=== PATIENT | female | born 1975 | race Caucasian/White ===

== ENCOUNTER 2018-12-24 18:02 | Outpatient (REF) | payer OTHER, SELFPAY ==
[2018-12-24 21:57] LABS: HCT 40.1 % (36.0-46.0); HGB 13.4 g/dL (12.0-15.5); Mean Corp. HGB Concentration 33.4 g/dL (32.0-36.0); Mean Corpuscular Hemoglobin 30.7 pg (27.0-33.0); Mean Platelet Volume 10.3 fL (8.0-11.0); Platelet Count 345 x1000/uL (130-400); RBC 4.36 m/cumm (4.00-5.20); White Blood Cell Count 8.24 k/cumm (4.4-10.8)
[2018-12-24 22:10] LABS: ALT 17 U/L (12-78); AST 16 U/L (15-37); Albumin 3.9 g/dL (3.4-5.0); Alkaline Phosphatase 47 U/L (46-116); Anion Gap 8.5 mmol/L (3-11); BUN 9 mg/dL (7-18); Bilirubin, Total 0.5 mg/dL (0.2-1.0); CO2 27.5 mmol/L (21.0-32.0); CREATININE 0.84 mg/dL (0.55-1.02); Calcium 9.2 mg/dL (8.5-10.1); Chloride 103 mmol/L (98-107); Glucose 84 mg/dL (70-100); Potassium 4.1 mmol/L (3.5-5.1); Sodium 139 mmol/L (136-145); Total Protein 7.5 g/dL (6.4-8.2)
[2018-12-24 22:36] LABS: Vitamin D 25 Total 49.1 ng/ml (30-100)
[2018-12-24 22:42] LABS: ESR 20 MM/HR (0-20)
== END 2018-12-24 18:22 ==
LOC: NCHCN 18:02
PROVIDERS: PCP Nurse Practitioner Family; Visit Provider Family Medicine
DX: R53.83 Other fatigue (principal); R50.9 Fever, unspecified
CPT/HCPCS: 80053; 82306; 85027; 85652

== ENCOUNTER 2019-03-15 17:59 | Outpatient (REF) | payer BC, SELFPAY ==
[2019-03-15 20:53] LABS: Abs Immature Grans 0.03 k/cumm (0.0-0.09); HCT 39.5 % (36.0-46.0); HGB 13.1 g/dL (12.0-15.5); Mean Corp. HGB Concentration 33.2 g/dL (32.0-36.0); Mean Corpuscular Hemoglobin 30.6 pg (27.0-33.0); Mean Corpuscular Volume 92.3 fL (80-95); Mean Platelet Volume 10.4 fL (8.0-11.0); Platelet Count 366 x1000/uL (130-400); RBC 4.28 m/cumm (4.00-5.20); RBC Distribution Width 13.1 % (11.7-14.6); White Blood Cell Count 10.53 k/cumm (4.4-10.8)
[2019-03-15 21:13] LABS: ALT 18 U/L (12-78); AST 14 U/L (15-37); Alkaline Phosphatase 54 U/L (46-116); BUN 8 mg/dL (7-18); Bilirubin, Total 0.4 mg/dL (0.2-1.0); CREATININE 0.75 mg/dL (0.55-1.02); Chloride 102 mmol/L (98-107); Glucose 88 mg/dL (70-100); Sodium 138 mmol/L (136-145); TSH (W/Ref FT4) 1.89 uIU/mL (0.358-3.74); Total Protein 7.4 g/dL (6.4-8.2)
[2019-03-15 21:19] LABS: Absolute Neutrophil Count 4.84 k/cumm (1.2-6.7)
[2019-03-15 21:20] LABS: Absolute Basophil Count 0.11 k/cumm (0.0-0.2); Absolute Eosinophil Count 1.16 k/cumm (0.0-0.7); Absolute Monocyte Count 0.42 k/cumm (0.11-0.7); Atypical Lymphocytes % 3; Diff Comment Manual Differential; RBC Morphology Normal
[2019-03-17 10:36] LABS: HBs Antibody, Quant <3.1 mIU/mL; Hepatitis B Surface Ab Negative
[2019-03-17 11:40] LABS: Measles IgG Antibody Positive; Mumps Antibody IgG Positive (Negative); Rubella IgG Ab (UVM) Positive; Varicella IgG Antibody Positive
[2019-04-02 09:54] LABS: Rabies Antibody Endpoint 1.1 IU/mL
== END 2019-03-15 18:19 ==
LOC: NCHCN 17:59
PROVIDERS: PCP Nurse Practitioner Family; Visit Provider Nurse Practitioner Family
DX: Z00.00 Encounter for general adult medical examination without abnormal findings (principal); Z01.84 Encounter for antibody response examination; Z11.59 Encounter for screening for other viral diseases; Z13.29 Encounter for screening for other suspected endocrine disorder; R19.7 Diarrhea, unspecified; R10.32 Left lower quadrant pain
CPT/HCPCS: 80053; 86317; 86706; 86787; 84443; 85025; 86735; 86762; 86765

== ENCOUNTER 2019-03-19 02:16 | Outpatient (CLI) | payer BC, SELFPAY ==
--- NOTE | 2019-03-19 09:32 | DI.CT_ITS ---
SYMPTOMS/DIAGNOSIS: LLQ ABD PAIN, R10.32, DIARRHEA, R19.7 CT OF THE ABDOMEN AND PELVIS: There are no prior comparison exams. Images were performed from the lung bases through the ischial tuberosities after IV and oral contrast. The lung bases are clear. The heart size is normal. The liver, gallbladder, spleen, pancreas, adrenals and kidneys appear normal. The appendix appears normal. There is no bowel dilatation or inflammatory change. No diverticula are seen. There is no free air or free fluid. The uterus, ovaries and bladder are unremarkable. There is no adenopathy. The aorta is normal in diameter. There are degenerative disc changes greatest at L 4 - 5. IMPRESSION: No acute abnormality.
[2019-03-19] MEDS: Omnipaque 350 MG/ML 100 ML BTL IV (09:35)
== END 2019-03-19 02:36 ==
PROVIDERS: PCP Nurse Practitioner Family; Visit Provider Nurse Practitioner Family
DX: R10.32 Left lower quadrant pain (principal); R19.7 Diarrhea, unspecified
CPT/HCPCS: 74177; J3490

== ENCOUNTER 2019-03-29 11:52 | Outpatient (REF) | payer BC, SELFPAY ==
--- NOTE | 2019-03-29 11:19 | SKI_PTH ---
PATIENT: Elis Bernal LOC: [facility] U#:[id number] AGE/SX: 44/F ROOM: RE03/29/[address]: Felipe Garcia DO : 1975 BED: DIS: 03/29/2019 SPEC #: [id number] RECD: 03/29/19 18:03 STATUS: MANJU REMatthew #: [id number] KIARA: 03/29/19 11:[address]: Felipe Garcia DEPT: Surgical Specimen RECD BY: Binta Mooney ENTERED: 03/29/19 18:05 SP TYPE: NA COLLINS DR: Sushila Chung Tissues: 1 - SKIN BIOPSY(SHAVE/PUNCH) Procedures: SKIN LEVEL 4 Comments: [id number]
== END 2019-03-29 12:12 ==
LOC: LBN 11:52
PROVIDERS: PCP Nurse Practitioner Family; Visit Provider Otolaryngology Otolaryngology/Facial Plastic Surgery
DX: L82.1 Other seborrheic keratosis (principal)
CPT/HCPCS: 88305

== ENCOUNTER 2019-04-21 16:58 | Outpatient (REF) | payer BC, SELFPAY ==
[2019-04-21 22:34] LABS: C-Reactive Protein 0.21 mg/dL (0.0-0.3)
[2019-04-21 23:16] LABS: ESR 18 MM/HR (0-20)
[2019-04-21 23:22] LABS: Iron 64 ug/dL (50-175)
[2019-04-21 23:24] LABS: Vitamin B12 767 pg/mL (193-986)
[2019-04-23 13:59] LABS: Lyme Ab w Rflx to Lyme Confirm Negative
[2019-04-23 16:39] LABS: ANA Interpretation Negative (NEGAT)
[2019-04-24 22:23] LABS: Anaplasma phagocytophilum Negative (Negative); B. miyamotoi PCR Negative (Negative); Babesia divergens/MO-1 Negative (Negative); Babesia duncani Negative (Negative); Babesia microti Negative (Negative); Ehrlichia chaffeensis Negative (Negative); Ehrlichia ewingii/canis Negative (Negative); Ehrlichia muris eauclairensis Negative (Negative)
== END 2019-04-21 17:18 ==
LOC: NCHCN 16:58
PROVIDERS: PCP Nurse Practitioner Family; Visit Provider Nurse Practitioner Family
DX: R53.83 Other fatigue (principal); R41.0 Disorientation, unspecified; R50.9 Fever, unspecified; G43.109 Migraine with aura, not intractable, without status migrainosus
CPT/HCPCS: 85652; 82607; 83540; 86038; 86140; 86618; 87798

== ENCOUNTER 2019-06-09 00:27 | Outpatient (CLI) | payer BC, SELFPAY ==
--- NOTE | 2019-06-09 13:49 | DI.MRI_ITS ---
SYMPTOM/DIAGNOSIS: WORSENING HEADACHES, NEW VISUAL DISTURBANCES, H53.9 BRAIN MRI: Sagittal T 2, axial T 2, axial diffusion, axial FLAIR and axial GRE and axial T 1 pulse sequences were performed. No signal abnormality is demonstrated in the brain. There is no evidence of a mass or restricted diffusion. The ventricles are normal. The normal flow void is identified in the cerebral vessels. SUMMARY: Normal brain MRI.
== END 2019-06-09 00:47 ==
PROVIDERS: PCP Nurse Practitioner Family; Visit Provider Nurse Practitioner Adult Health
DX: H53.9 Unspecified visual disturbance (principal); R51 Headache
CPT/HCPCS: 70551

== ENCOUNTER 2019-09-28 14:43 | Outpatient (REF) | payer BC, SELFPAY ==
[2019-09-28 22:12] LABS: Abs Immature Grans 0.01 k/cumm (0.0-0.09); Absolute Basophil Count 0.04 k/cumm (0.0-0.2); Absolute Eosinophil Count 0.53 k/cumm (0.0-0.7); Absolute Lymphocyte Count 2.34 k/cumm (1.2-3.4); Absolute Monocyte Count 0.77 k/cumm (0.11-0.7); Absolute Neutrophil Count 4.79 k/cumm (1.2-6.7); Basophils % 0.5; Eosinophils % 6.3; HCT 41.5 % (36.0-46.0); HGB 13.7 g/dL (12.0-15.5); Immature Grans % 0.1; Lymphocytes % 27.6; Mean Corpuscular Hemoglobin 30.6 pg (27.0-33.0); Mean Corpuscular Volume 92.6 fL (80-95); Mean Platelet Volume 10.3 fL (8.0-11.0); Monocytes % 9.1; Neutrophils % 56.4; Platelet Count 382 x1000/uL (130-400); RBC 4.48 m/cumm (4.00-5.20); White Blood Cell Count 8.48 k/cumm (4.4-10.8)
[2019-09-28 22:54] LABS: ALT 22 U/L (14-59); AST 15 U/L (15-37); Alkaline Phosphatase 46 U/L (46-116); Anion Gap 11.2 mmol/L (3-11); BUN 10 mg/dL (7-18); Bilirubin, Total 0.4 mg/dL (0.2-1.0); CO2 24.8 mmol/L (21.0-32.0); CREATININE 0.86 mg/dL (0.55-1.02); Chloride 104 mmol/L (98-107); Glucose 85 mg/dL (70-100); Potassium 4.2 mmol/L (3.5-5.1); Sodium 140 mmol/L (136-145); TSH 1.11 uIU/mL (0.36-3.74); Total Protein 7.6 g/dL (6.4-8.2)
[2019-09-28 23:33] LABS: FREE T4 0.91 ng/dL (0.76-1.46)
[2019-09-29 22:36] LABS: T3,Free 3.5 pg/ml (2.8-5.3)
[2019-09-30 11:54] LABS: Lyme Ab w Rflx to Lyme Confirm Negative
[2019-09-30 21:47] LABS: Anaplasma phagocytophilum Negative (Negative); B. miyamotoi PCR Negative (Negative); Babesia divergens/MO-1 Negative (Negative); Babesia duncani Negative (Negative); Babesia microti Negative (Negative); Ehrlichia chaffeensis Negative (Negative); Ehrlichia ewingii/canis Negative (Negative); Ehrlichia muris eauclairensis Negative (Negative)
== END 2019-09-28 15:03 ==
LOC: NCHCO 14:43
PROVIDERS: PCP Nurse Practitioner Family; Visit Provider Specialist/Technologist Athletic Trainer
DX: R53.81 Other malaise (principal)
CPT/HCPCS: 80053; 87798; 84439; 84443; 84481; 85025; 86618

== ENCOUNTER 2019-11-05 13:01 | Outpatient (REF) | payer BC, SELFPAY ==
[2019-11-05 20:50] LABS: Abs Immature Grans 0.01 k/cumm (0.0-0.09); Absolute Basophil Count 0.03 k/cumm (0.0-0.2); Absolute Eosinophil Count 0.39 k/cumm (0.0-0.7); Absolute Lymphocyte Count 2.19 k/cumm (1.2-3.4); Absolute Monocyte Count 0.79 k/cumm (0.11-0.7); Absolute Neutrophil Count 4.79 k/cumm (1.2-6.7); Basophils % 0.4; Eosinophils % 4.8; HGB 13.5 g/dL (12.0-15.5); Immature Grans % 0.1; Lymphocytes % 26.7; Mean Corp. HGB Concentration 32.9 g/dL (32.0-36.0); Mean Corpuscular Hemoglobin 30.5 pg (27.0-33.0); Mean Corpuscular Volume 92.6 fL (80-95); Mean Platelet Volume 10.2 fL (8.0-11.0); Monocytes % 9.6; Neutrophils % 58.4; Platelet Count 402 x1000/uL (130-400); RBC 4.43 m/cumm (4.00-5.20)
[2019-11-05 21:11] LABS: Iron 103 ug/dL (50-170); Total Iron Binding Capacity 322 ug/dL (250-450); Transferrin Sat 32 % (15-50)
== END 2019-11-05 13:21 ==
LOC: NCHCN 13:01
PROVIDERS: PCP Nurse Practitioner Family; Visit Provider Nurse Practitioner Family
DX: R53.83 Other fatigue (principal); J01.90 Acute sinusitis, unspecified
CPT/HCPCS: 83540; 83550; 85025

== ENCOUNTER 2020-04-26 08:58 | Outpatient (CLI) | payer BC, SELFPAY ==
[2020-04-28 12:53] LABS: COVID-19 RT-PCR Result NEGATIVE (Negative)
== END 2020-04-26 09:18 ==
PROVIDERS: PCP Nurse Practitioner Family; Visit Provider Nurse Practitioner Family
DX: Z11.59 Encounter for screening for other viral diseases (principal)
CPT/HCPCS: U0003

== ENCOUNTER 2020-08-31 15:00 | Outpatient (REF) | payer BC, SELFPAY ==
[2020-09-04 12:50] LABS: Patient Race White; SARS-CoV-2 RNA Undetected (Undetected); SARS-CoV-2 Specimen Source Nasal
== END 2020-08-31 15:20 ==
LOC: NCHCN 15:00
PROVIDERS: PCP Nurse Practitioner Family; Visit Provider Nurse Practitioner Family
DX: Z20.828 Contact with and (suspected) exposure to other viral communicable diseases (principal)
CPT/HCPCS: U0003

== ENCOUNTER 2021-06-11 03:27 | Outpatient (CLI) | payer BC, SELFPAY ==
[2021-06-11 08:09] LABS: HCT 40.7 % (36.0-46.0); HGB 13.5 g/dL (11.2-15.7); MCH 30.3 pg (27.0-33.0); MCHC 33.2 % (32.0-36.0); MCV 91.3 fL (80-95); MPV 9.6 fL (8.0-11.0); Platelet Count 353 10^3/uL (130-400); RBC 4.46 10^6/uL (3.93-5.22); RDW 12.6 % (11.7-14.6); RDW-SD 41.4 fL; WBC 7.89 10^3/uL (4.4-10.8)
[2021-06-11 09:09] LABS: ALT 19 U/L (14-59); AST 16 U/L (15-37); Alkaline Phosphatase 55 U/L (46-116); Anion Gap 11.8 mmol/L (3-11); BUN 8 mg/dL (7-18); Bilirubin, Total 0.5 mg/dL (0.2-1.0); CO2 25.2 mmol/L (21.0-32.0); CREATININE 0.9 mg/dL (0.55-1.02); Calculated LDL 182 mg/dL (<100); Chloride 105 mmol/L (98-107); Cholesterol 255 mg/dL (<200); Glucose 97 mg/dL (74-106); HDL Cholesterol 54 mg/dL (40-60); Potassium 4.3 mmol/L (3.5-5.1); Sodium 142 mmol/L (136-145); TSH (W/Ref FT4) 1.53 uIU/mL (0.36-3.74); Total Protein 7.6 g/dL (6.4-8.2); Triglyceride 96 mg/dL (<150)
[2021-06-11 09:23] LABS: Vitamin D 25 Total 38.9 ng/mL (30-100)
== END 2021-06-11 03:28 | disposition home or self-care (01) ==
LOC: LBO 03:28
PROVIDERS: PCP Student in an Organized Health Care Education/Training Program; Visit Provider Student in an Organized Health Care Education/Training Program
DX: R53.83 Other fatigue (principal); E55.9 Vitamin D deficiency, unspecified; R63.8 Other symptoms and signs concerning food and fluid intake; E56.9 Vitamin deficiency, unspecified; E46 Unspecified protein-calorie malnutrition; E86.0 Dehydration; Z13.220 Encounter for screening for lipoid disorders; F32.9 Major depressive disorder, single episode, unspecified; M79.672 Pain in left foot
CPT/HCPCS: 36415; 80053; 80061; 82306; 85027; 84443

== ENCOUNTER 2021-09-17 18:48 | Outpatient (REF) | payer BC, SELFPAY ==
[2021-09-17 22:06] LABS: Abs Immature Grans 0.04 10^3/uL (0.0-0.06); Absolute Basophil Count 0.05 10^3/uL (0.0-0.2); Absolute Eosinophil Count 0.34 10^3/uL (0.0-0.7); Absolute Lymphocyte Count 2.16 10^3/uL (1.2-3.4); Absolute Neutrophil Count 5.19 10^3/uL (1.2-6.7); Basophils % 0.6; Eosinophils % 3.9; HCT 42.3 % (36.0-46.0); HGB 13.7 g/dL (11.2-15.7); Immature Grans % 0.5; Lymphocytes % 24.9; MCH 30.2 pg (27.0-33.0); MCHC 32.4 % (32.0-36.0); MCV 93.2 fL (80-95); MPV 10.7 fL (8.0-11.0); Monocytes % 10.4; Neutrophils % 59.7; Nucleated RBC 0 %; Platelet Count 359 10^3/uL (130-400); RBC 4.54 10^6/uL (3.93-5.22); RDW 12.8 % (11.7-14.6); RDW-SD 43.8 fL; WBC 8.68 10^3/uL (4.4-10.8)
[2021-09-17 22:23] LABS: ESR 18 mm/hr (0-20)
[2021-09-17 22:30] LABS: Iron 86 ug/dL (50-170); Total Iron Binding Capacity 331 ug/dL (250-450); Transferrin Sat 26 % (15-50)
[2021-09-17 22:54] LABS: Anion Gap 10.7 mmol/L (3-11); BUN 7 mg/dL (7-18); CO2 26.3 mmol/L (21.0-32.0); CREATININE 0.9 mg/dL (0.55-1.02); Calcium 9.2 mg/dL (8.5-10.1); Calculated LDL 170 mg/dL (<100); Chloride 106 mmol/L (98-107); Cholesterol 245 mg/dL (<200); Ferritin 73 ng/mL (8-252); Glucose 74 mg/dL (74-106); HDL Cholesterol 49 mg/dL (40-60); Magnesium 2.4 mg/dL (1.8-2.4); Potassium 4.1 mmol/L (3.5-5.1); Sodium 143 mmol/L (136-145); TSH 1.61 uIU/mL (0.36-3.74); Triglyceride 132 mg/dL (<150); Vitamin B12 426 pg/mL (193-986)
[2021-09-17 23:11] LABS: C-Reactive Protein 0.15 mg/dL (0.0-0.3); FREE T4 0.86 ng/dL (0.76-1.46)
[2021-09-17 23:17] LABS: Vitamin D 25 Total 51.6 ng/mL (30-100)
[2021-09-18 17:02] LABS: T3,Free 3.2 pg/mL (2.8-5.3)
[2021-09-19 14:32] LABS: ANA Interpretation Negative (Negative)
[2021-09-19 15:28] LABS: Lyme Ab w Rflx to Lyme Confirm Negative (Negative)
[2021-09-20 18:33] LABS: Anaplasma phagocytophilum Negative (Negative); B. miyamotoi PCR Negative (Negative); Babesia divergens/MO-1 Negative (Negative); Babesia duncani Negative (Negative); Babesia microti Negative (Negative); Ehrlichia chaffeensis Negative (Negative); Ehrlichia ewingii/canis Negative (Negative); Ehrlichia muris eauclairensis Negative (Negative)
== END 2021-09-17 18:49 | disposition home or self-care (01) ==
LOC: NCHCN 18:48
PROVIDERS: PCP Student in an Organized Health Care Education/Training Program; Visit Provider Nurse Practitioner Family
DX: R53.81 Other malaise (principal); E55.9 Vitamin D deficiency, unspecified; J01.90 Acute sinusitis, unspecified; H04.129 Dry eye syndrome of unspecified lacrimal gland
CPT/HCPCS: 80048; 80061; 82306; 85652; 87798; 82607; 82728; 83540; 83550; 83735; 84439; 84443; 84481; 85025; 86038; 86140; 86618